=== PATIENT | female | born 1970 | race Caucasian/White ===

== ENCOUNTER → 2017-11-06 16:32 | Outpatient (REF) | payer OTHER, SELFPAY ==
[2017-11-06 20:57] LABS: Abs Immature Grans 0.01 k/cumm (0.0-0.09); Absolute Basophil Count 0.05 k/cumm (0.0-0.2); Absolute Eosinophil Count 0.58 k/cumm (0.0-0.7); Absolute Monocyte Count 0.39 k/cumm (0.11-0.7); Absolute Neutrophil Count 3.33 k/cumm (1.2-6.7); Basophils % 0.9; Eosinophils % 9.9; HCT 40.1 % (36.0-46.0); Immature Grans % 0.2; Lymphocytes % 25.6; Mean Corp. HGB Concentration 32.4 g/dL (32.0-36.0); Mean Corpuscular Hemoglobin 32.3 pg (27.0-33.0); Mean Corpuscular Volume 99.5 fL (80-95); Mean Platelet Volume 11.7 fL (8.0-11.0); Monocytes % 6.7; Neutrophils % 56.7; Platelet Count 238 x1000/uL (130-400); RBC 4.03 m/cumm (4.00-5.20); RBC Distribution Width 13.2 % (11.7-14.6); White Blood Cell Count 5.86 k/cumm (4.4-10.8)
[2017-11-06 21:18] LABS: ALT 18 U/L (12-78); AST 17 U/L (15-37); Albumin 4.3 g/dL (3.4-5.0); Alkaline Phosphatase 54 U/L (46-116); Anion Gap 9.8 mmol/L (3-11); BUN 14 mg/dL (7-18); Bilirubin, Total 0.3 mg/dL (0.2-1.0); CO2 26.2 mmol/L (21.0-32.0); CREATININE 1.09 mg/dL (0.55-1.02); Chloride 103 mmol/L (98-107); Glucose 70 mg/dL (70-100); Potassium 3.9 mmol/L (3.5-5.1); Sodium 139 mmol/L (136-145); Total Protein 7.7 g/dL (6.4-8.2)
== END ==
LOC: LBN 16:32
PROVIDERS: PCP Nurse Practitioner Family; Visit Provider Nurse Practitioner Family
DX: M05.79 Rheumatoid arthritis with rheumatoid factor of multiple sites without organ or systems involvement (principal); Z79.899 Other long term (current) drug therapy
CPT/HCPCS: 80053; 85025

== ENCOUNTER 2018-01-06 17:46 | Outpatient (RCR) | payer OTHER, SELFPAY | END 2018-01-14 23:59 | disposition home or self-care (01) | LOC: NCHCN 17:46 | PROVIDERS: PCP Nurse Practitioner Family; Visit Provider Family Medicine | DX: M54.2 Cervicalgia (principal) | CPT/HCPCS: 87077; 87086; 87186 ==

== ENCOUNTER 2018-04-24 08:52 | Outpatient (REF) | payer OTHER, SELFPAY ==
[2018-04-24 20:56] LABS: Abs Immature Grans 0.01 k/cumm (0.0-0.09); Absolute Basophil Count 0.04 k/cumm (0.0-0.2); Absolute Eosinophil Count 0.34 k/cumm (0.0-0.7); Absolute Lymphocyte Count 1.62 k/cumm (1.2-3.4); Absolute Neutrophil Count 4.39 k/cumm (1.2-6.7); Basophils % 0.6; Eosinophils % 4.9; HCT 38.6 % (36.0-46.0); HGB 12.5 g/dL (12.0-15.5); Immature Grans % 0.1; Lymphocytes % 23.5; Mean Corp. HGB Concentration 32.4 g/dL (32.0-36.0); Mean Corpuscular Volume 98.7 fL (80-95); Monocytes % 7.2; Neutrophils % 63.7; Platelet Count 244 x1000/uL (130-400); RBC 3.91 m/cumm (4.00-5.20); RBC Distribution Width 13.2 % (11.7-14.6)
[2018-04-24 21:06] LABS: ALT 18 U/L (12-78); AST 16 U/L (15-37); Albumin 4.1 g/dL (3.4-5.0); Alkaline Phosphatase 55 U/L (46-116); Anion Gap 9.1 mmol/L (3-11); BUN 17 mg/dL (7-18); Bilirubin, Total 0.3 mg/dL (0.2-1.0); CO2 27.9 mmol/L (21.0-32.0); CREATININE 1.03 mg/dL (0.55-1.02); Calcium 9.4 mg/dL (8.5-10.1); Chloride 103 mmol/L (98-107); Estimated GFR 57.44 (mL/min/1.73m2); Glucose 72 mg/dL (70-100); Potassium 4.4 mmol/L (3.5-5.1); Sodium 140 mmol/L (136-145); Total Protein 7.8 g/dL (6.4-8.2)
[2018-04-24 21:49] LABS: ESR 10 MM/HR (0-20)
== END 2018-04-24 09:12 ==
LOC: NCHCN 08:52
PROVIDERS: PCP Nurse Practitioner Family; Visit Provider Family Medicine
DX: M06.9 Rheumatoid arthritis, unspecified (principal); R42 Dizziness and giddiness
CPT/HCPCS: 80053; 85652; 85025

== ENCOUNTER 2018-06-25 21:43 | Outpatient (REF) | payer OTHER, SELFPAY ==
[2018-06-25 22:06] LABS: Cholesterol 201 mg/dL (50-200); HDL Cholesterol 58 mg/dL (40-60); LDL CHOLESTEROL 123 mg/dL (<100); Triglyceride 69 mg/dL (30-150)
[2018-06-29 11:47] LABS: Varicella IgG Antibody Positive
== END 2018-06-25 22:03 ==
LOC: NCHCN 21:43
PROVIDERS: PCP Nurse Practitioner Family; Visit Provider Registered Nurse
DX: Z00.00 Encounter for general adult medical examination without abnormal findings (principal); Z02.0 Encounter for examination for admission to educational institution; Z13.220 Encounter for screening for lipoid disorders; Z11.59 Encounter for screening for other viral diseases
CPT/HCPCS: 80061; 83721; 86787

== ENCOUNTER 2018-09-23 15:15 | Outpatient (REF) | payer OTHER, SELFPAY ==
[2018-09-23 21:53] LABS: Abs Immature Grans 0.02 k/cumm (0.0-0.09); Absolute Basophil Count 0.03 k/cumm (0.0-0.2); Absolute Eosinophil Count 0.34 k/cumm (0.0-0.7); Absolute Lymphocyte Count 1.69 k/cumm (1.2-3.4); Absolute Monocyte Count 0.61 k/cumm (0.11-0.7); Absolute Neutrophil Count 6.22 k/cumm (1.2-6.7); Basophils % 0.3; Eosinophils % 3.8; HCT 41.1 % (36.0-46.0); HGB 13.5 g/dL (12.0-15.5); Immature Grans % 0.2; Mean Corp. HGB Concentration 32.8 g/dL (32.0-36.0); Mean Corpuscular Hemoglobin 32.3 pg (27.0-33.0); Mean Corpuscular Volume 98.3 fL (80-95); Mean Platelet Volume 11.8 fL (8.0-11.0); Monocytes % 6.8; Neutrophils % 69.9; Platelet Count 254 x1000/uL (130-400); RBC 4.18 m/cumm (4.00-5.20); RBC Distribution Width 13.8 % (11.7-14.6); White Blood Cell Count 8.91 k/cumm (4.4-10.8)
[2018-09-23 22:08] LABS: ALT 26 U/L (12-78); Albumin 4.1 g/dL (3.4-5.0); Alkaline Phosphatase 59 U/L (46-116); Anion Gap 10.4 mmol/L (3-11); BUN 15 mg/dL (7-18); Bilirubin, Total 0.2 mg/dL (0.2-1.0); CO2 26.6 mmol/L (21.0-32.0); CREATININE 0.89 mg/dL (0.55-1.02); Calcium 9.4 mg/dL (8.5-10.1); Chloride 103 mmol/L (98-107); Glucose 83 mg/dL (70-100); Potassium 3.9 mmol/L (3.5-5.1); Sodium 140 mmol/L (136-145); Total Protein 7.2 g/dL (6.4-8.2); Uric Acid 4.8 mg/dL (2.6-6.0)
[2018-09-23 22:17] LABS: AST 18 U/L (15-37)
[2018-09-23 22:41] LABS: ESR 9 MM/HR (0-20)
== END 2018-09-23 15:35 ==
LOC: NCHCN 15:15
PROVIDERS: PCP Nurse Practitioner Family; Visit Provider Registered Nurse
DX: M06.9 Rheumatoid arthritis, unspecified (principal); Z79.899 Other long term (current) drug therapy
CPT/HCPCS: 80053; 85652; 84550; 85025; 86140

== ENCOUNTER 2019-11-11 17:55 | Outpatient (REF) | payer MEDICAID, SELFPAY ==
[2019-11-14 02:33] LABS: COVID-19 RT-PCR Result NEGATIVE (Negative)
== END 2019-11-11 18:15 ==
LOC: NCHCN 17:55
PROVIDERS: PCP Nurse Practitioner Family; Visit Provider Family Medicine
DX: Z20.828 Contact with and (suspected) exposure to other viral communicable diseases (principal)
CPT/HCPCS: U0003

== ENCOUNTER 2020-06-26 15:13 | Outpatient (REF) | payer OTHER, SELFPAY ==
--- NOTE | 2020-06-26 15:00 | PAPFT_PTH ---
PATIENT: Nilda Ambriz LOC: [facility] U#:[id number] AGE/SX: 49/F ROOM: RE06/26/[address]: Keiko Ansari DO : 1970 BED: DIS: 06/26/2020 SPEC #: [id number] RECD: 06/26/20 15:51 STATUS: DENIA REQ #: [id number] AMALIA: 06/26/20 15:[address]: Keiko Ansari DEPT: [facility] Cytology RECD BY: Gissel Tabares ENTERED: 06/26/20 15:51 SP TYPE: PAPFT OTHR DR: Portia Junior Tissues: 1 - CX/ENDOCX FOR PAP SMEARS Procedures: PAP THIN PREP/UVM Screening HPV DNA PROBE Comments: [id number]
--- NOTE | 2020-06-26 15:00 | ENDOMET_PTH ---
PATIENT: Nilda Ambriz LOC: [facility] U#:[id number] AGE/SX: 49/F ROOM: RE06/26/[address]: Keiko Ansari DO : 1970 BED: DIS: 06/26/2020 SPEC #: [id number] RECD: 06/26/20 15:34 STATUS: DENIA REQ #: [id number] AMALIA: 06/26/20 15:[address]: Keiko Ansari DEPT: Surgical Specimen RECD BY: Gissel Tabares ENTERED: 06/26/20 15:35 SP TYPE: Endomet OTHR DR: Portia Junior Tissues: 1 - ENDOMETRIUM BX/MARTINE Procedures: GROSS AND MICRO LEVEL 4 Comments: [id number]
== END 2020-06-26 15:14 | disposition home or self-care (01) ==
LOC: LBN 15:13
PROVIDERS: PCP Nurse Practitioner Family; Visit Provider Obstetrics & Gynecology
DX: Z12.4 Encounter for screening for malignant neoplasm of cervix (principal); Z11.51 Encounter for screening for human papillomavirus (HPV); N93.9 Abnormal uterine and vaginal bleeding, unspecified; N85.8 Other specified noninflammatory disorders of uterus
CPT/HCPCS: 88142; 88305; 87624

== ENCOUNTER 2020-10-31 02:58 | Outpatient (CLI) | payer OTHER, MEDICAID, SELFPAY ==
[2020-10-31 08:47] LABS: Abs Immature Grans 0.02 10^3/uL (0.0-0.06); Absolute Basophil Count 0.06 10^3/uL (0.0-0.2); Absolute Eosinophil Count 0.24 10^3/uL (0.0-0.7); Absolute Lymphocyte Count 1.33 10^3/uL (1.2-3.4); Absolute Monocyte Count 0.39 10^3/uL (0.1-0.8); Absolute Neutrophil Count 3.92 10^3/uL (1.2-6.7); HCT 41.7 % (36.0-46.0); HGB 13.7 g/dL (11.2-15.7); Immature Grans % 0.3; Lymphocytes % 22.3; MCH 31.6 pg (27.0-33.0); MCHC 32.9 % (32.0-36.0); MCV 96.1 fL (80-95); MPV 11.2 fL (8.0-11.0); Monocytes % 6.5; Neutrophils % 65.9; Nucleated RBC 0 %; Platelet Count 246 10^3/uL (130-400); RBC 4.34 10^6/uL (3.93-5.22); RDW 11.9 % (11.7-14.6); RDW-SD 42.4 fL; WBC 5.96 10^3/uL (4.4-10.8)
[2020-10-31 09:47] LABS: TSH (W/Ref FT4) 1.56 uIU/mL (0.36-3.74)
[2020-10-31 17:33] LABS: Prolactin 10.7 ng/mL (See Table)
== END 2020-10-31 02:59 | disposition home or self-care (01) ==
LOC: LBO 02:59
PROVIDERS: PCP Nurse Practitioner Family; Visit Provider Obstetrics & Gynecology
DX: N92.0 Excessive and frequent menstruation with regular cycle (principal); Z01.818 Encounter for other preprocedural examination; Z01.812 Encounter for preprocedural laboratory examination
CPT/HCPCS: 36415; 85027; 86850; 86900; 86901; 84146; 84443; 85025

== ENCOUNTER 2020-10-31 03:29 | Outpatient (CLI) | payer OTHER, MEDICAID, SELFPAY ==
[2020-10-31 13:16] LABS: Source Nasal/Nares
[2020-10-31 16:28] LABS: COVID-19 PCR Negative (Negative)
== END 2020-10-31 03:30 | disposition home or self-care (01) ==
LOC: LBO 03:29
PROVIDERS: PCP Nurse Practitioner Family; Visit Provider Obstetrics & Gynecology
DX: Z20.822 Contact with and (suspected) exposure to COVID-19 (principal); Z01.818 Encounter for other preprocedural examination
CPT/HCPCS: 87635

== ENCOUNTER 2020-11-02 11:35 | Observation (INO) | payer OTHER, MEDICAID, SELFPAY ==
[2020-11-02] VITALS (14 sets, daily range): BP systolic 76–116; BP diastolic 41–69; PULSE 58–85; RESP 11–22; TEMP 36.1–37.2; O2SAT 97–100; BMI 30.9
[2020-11-02] MEDS: Lactated Ringers 1,000 ML 125 ML IV ×2 (07:01→11:30)
--- NOTE | 2020-11-02 07:07 | W.ANESPRE ---
General Info Date of Service Date Performed: 11/02/20 Height: 5 ft 4 in Weight: 81.647 kg Body Mass Index (BMI): 30.9 Surgical Procedure: Operation Date: 11/02/20 08:25 Proposed Procedures Side Surgeon p Hysterectomy Vaginal Laparoscopic Assist, ZULLY SALPINGECTOMY POSSIBLE ANU, CYSTO Keiko DO Elan Meds Allergies and Home Medications Allergies Allergy/AdvReac Type Severity Reaction Status Date / Time nitrofurantoin AdvReac Severe Nausea, Unverified 11/02/20 06:32 macrocrystalline dizziness [From Macrobid] Home Medication Medication Instructions Recorded folic acid 1 mg PO DAILY tab-cap 07/31/12 methotrexate sodium 2.5 mg PO weekly #6 07/31/12 norethindrone acetate 5 mg tablet 5 mg PO DAILY #30 tab 10/12/20 albuterol sulfate [ProAir HFA] 2 puff INHALATION Q4H 11/01/20 fluticasone propionate [Flovent 1 inh INHALATION HS 11/01/20 Diskus] leucovorin calcium 10 mg PO DIRECTED 11/01/20 Current Visit Medications: Current Medications Generic Name Dose Route Start Last Admin Trade Name Freq PRN Reason Stop Dose Admin Ringer's Solution 1,000 mls @ 125 mls/hr 11/02/20 06:00 11/02/20 07:01 IV 12/01/20 23:59 125 mls/hr INFUSION FILIBERTO Administration IV Miscellaneous Supplies 1 each 11/02/20 06:00 Iv Access IV 12/01/20 23:59 DIRECTED FILIBERTO Sodium Chloride 0 ml 11/02/20 06:00 Normal Saline Flush 10 Ml Syr IV 12/01/20 23:59 PRN PRN Sodium Chloride 0 ml 11/02/20 06:00 Normal Saline 10 Ml Vial IJ 12/01/20 23:59 DIRECTED PRN Sterile Water 0 ml 11/02/20 06:00 Water,Injection,Sterile 10 Ml Vial IJ 12/01/20 23:59 DIRECTED PRN PFSH Active Problems Active Problems: Problem Status Onset Code Endometrial thickening on ultrasound R93.89 Uterine fibroid D25.9 Heavy menses N92.0 Medical History Medical History (Updated 11/02/20 @ 06:35 by Raquel Aviles) Endometrial thickening on ultrasound Heavy menses Rheumatoid aortitis Uterine fibroid Surgical History Surgical History Appendectomy Ligation of fallopian tube Tobacco Smoking/Tobacco Use Status: Former Tobacco Use Alcohol Alcohol Intake: never Substance Use Substance use: Never Substance use type: does not use Vital Signs and Lab Results Lab Results Blood Type / Crossmatch: Patient ABO/Rh A Negative 10/31/20 08:25 10/31/20 Antibody Screen NEGATIVE 10/31/20 08:25 10/31/20 Complete Blood Count: White Blood Count 5.96 10^3/uL (4.4-10.8) 10/31/20 08:25 10/31/20 Red Blood Count 4.34 10^6/uL (3.93-5.22) 10/31/20 08:25 10/31/20 Hemoglobin 13.7 g/dL (11.2-15.7) 10/31/20 08:25 10/31/20 Hematocrit 41.7 % (36.0-46.0) 10/31/20 08:25 10/31/20 Platelet Count 246 10^3/uL (130-400) 10/31/20 08:25 10/31/20 Complete Metabolic Panel: No Data to Display Liver Function Panel: No Data to Display Coagulation Panel: No Data to Display Cardiac Panel: No Data to Display Arterial Blood Gas: No Data to Display Venous Blood Gas: No Data to Display Pancreas Panel: No Data to Display Thyroid Panel: Thyroid Stimulating Hormone (TSH) 1.56 uIU/mL (0.36-3.74) 10/31/20 08:25 10/31/20 Infectious Disease: Coronavirus (COVID-19)(PCR) Negative (Negative) 10/31/20 08:34 10/31/20 Coronavirus 2019 Source Nasal/Nares 10/31/20 08:34 10/31/20 Blood Cultures: No Data to Display Toxicology Panel: No Data to Display Panel: No Data to Display Anesthesia Assessment and Plan Anesthesia History Personal History: No History of Anesthesia Complications Family History: No Family History of Anesthesia Complications Exercise Tolerance Exercise Tolerance: Metabolic Equivalents>4 Pertinent Negatives Pertinent Negatives: No Symptoms of GERD, No Major Cardiovascular Symptoms or Complaints and No Major Pulmonary Symptoms or Complaints Cardiac & Pulmonary Exam Cardiac Exam: Normal S1/S2 Heart Sounds Pulmonary Exam: Clear Bilateral Breath Sounds Airway Exam Known Difficult Airway: No Mallampati Class: 2 Mouth Opening: Normal (> 3cm) Thyromental Distance: Greater than 3 cm Neck Range of Motion: Full ROM Neck Circumference: Normal Teeth Condition: Normal Dentition ASA Classification ASA Score: ASA 2 Emergency Case?: No NPO Status NPO Status: NPO Clears >2 hours, Solids >8 hours Status Status: Not Relevant due to Medical History Anesthesia Plan Resuscitation Status: Full Code Anesthesia Technique: General Anesthesia Airway Planned: Endotracheal Tube Pain Management: Intrathecal Analgesia Monitors Used: Standard Monitors
[2020-11-02] MEDS: Acetaminophen 500 MG TAB 1000 MG PO (07:41)
[2020-11-02] MEDS: Ondansetron 4 MG/2 ML VIAL IVP (07:41)
[2020-11-02] MEDS: ceFAZolin 2 GM/50 ML BAG 50 GM (08:09)
--- NOTE | 2020-11-02 09:17 | UTER_PTH ---
PATIENT: Nilda Ambriz LOC: [facility] U#:[id number] AGE/SX: 50/F ROOM: OBS.306 RE11/02/[address]: Keiko Ansari DO : 1970 BED: A DIS: 11/03/2020 SPEC #: [id number] RECD: 11/02/20 12:45 STATUS: SOUT REQ #: [id number] AMALIA: 11/02/20 09:[address]: Keiko Ansari DEPT: Surgical Specimen RECD BY: Gissel Tabares ENTERED: 11/02/20 12:47 SP TYPE: UTER OTHR DR: Portia Junior Tissues: 1 - UTERUS W OR W/O OVARIES(NOT TUMOR/PROLAPSE) Procedures: GROSS AND MICRO LEVEL 5 Comments: [id number]
[2020-11-02] MEDS: Bupivacaine 0.5% Pres-Free 30 ML VIAL (10:30)
--- NOTE | 2020-11-02 10:35 | W.PM.OP ---
Date of service: 11/02/20 Time of Service: 10:35 Operative Note Operative Note DATE OF PROCEDURE: 11/02/20 PRE-OP DIAGNOSIS: Symptomatic uterine fibroids POST-OP DIAGNOSIS: same PROCEDURE: Laparoscopically assisted vaginal hysterectomy, bilateral salpingectomy, cystoscopy SURGEON: Keiko Ansari SIGN ERECTOR: Rhina Ernandez ANESTHESIA TYPE: General LMA/ETT and Spinal Refer to Anesthesia Record ESTIMATED BLOOD LOSS: 50 PATHOLOGY: other (Bilateral fallopian tubes, uterus, cervix) COMPLICATIONS: None Patient was transported to: PACU Patient's condition: stable Indications: Ongoing heavy menstrual bleeding with symptomatic uterine fibroids and pelvic pain Findings: Normal-appearing ovaries bilaterally. Remnants of fallopian tubes. Bulky enlarged uterus, approximately 8 to 10 weeks size. Normal postoperative cystoscopy with no evidence of bladder injury. Normal functioning ureters. Procedure Description: Patient is a 50-year-old female with ongoing heavy menstrual bleeding and symptomatic uterine fibroids. Her menstrual cycles have been debilitating. She had been placed empirically on Aygestin to control bleeding. This provided some relief from her blood loss, however continued to have significant pelvic pain. Preop evaluation including ultrasound, endometrial biopsy and Pap smears were all normal. Risk benefits and alternatives of medical therapy versus surgical intervention were explained to the patient in full informed consent was obtained. She understand the risk of injury to the bowel, bladder, blood vessels, potential risk of anesthesia, thromboembolism, need for open laparotomy. Full informed consent has been obtained. She was taken to the operating suite with an IV running where she was placed in the dorsal supine position after intrathecal was placed for postoperative pain relief. General anesthesia was administered via endotracheal intubation. She was then placed in the modified dorsolithotomy position in [facility] and prepped and draped in the usual sterile fashion. Timeout was performed. Exam under anesthesia revealed a bulky uterus that was approximately 8 to 10 weeks size and midline and mobile. At this point Roman catheter was inserted for continuous bladder drainage. Weighted speculum was placed into the posterior vaginal vault and single-tooth tenaculum used to grasp the anterior lip of the cervix. Cervical os was dilated the point that a Hulka uterine manipulator could be placed within. At this point speculum was removed and attention was turned to the abdomen. After infiltration with quarter percent Marcaine a small infraumbilical skin incision was made. The anterior abdominal wall was elevated after stomach contents had been drained and with a varies needle direct insertion was performed. Pneumoperitoneum created to a maximum pressure of 15 mmHg with CO2 gas. After creation of the pneumoperitoneum a bladeless Optiview 10/12 sleeve and trocar were placed under direct visualization into the abdomen. Abdomen inspected and found to be atraumatic. A second and third right and left lower quadrant trocar site were placed after infiltration of quarter percent Marcaine with a 5 mm port. At this point the uterus was elevated. There is no evidence of intra-abdominal or pelvic adhesions noted. There were remnants of the fallopian tubes with fimbriated and attached in both ovaries. Ovaries otherwise were normal in appearance. Uterus was somewhat bulky approximately 8 to 10 weeks size. Attention was first turned to the right fallopian tube remnant which was elevated and cautery transected and removed through the 10 mm port. Similar procedure carried out on the left fallopian tube remnant. At this point the left round ligament was cauterized transected and ligated as well as the left utero-ovarian ligament. This allowed opening of the left broad ligament and creation of the bladder flap anteriorly with meticulous sharp dissection. Uterine artery and vein on the left were cauterized at this point. Attention was then turned to the right round ligament which was cautery transected and ligated as was the right utero-ovarian pedicle allowing access to the broad ligament for completion of the bladder flap. The right uterine artery and vein were also cautery ligated. At this point, after achieving good hemostasis, attention was turned to the vaginal vault. CO2 gas was discontinued for the vaginal portion of the procedure. The Hulka uterine manipulator had been removed. Weighted speculum placed in the posterior vaginal vault and the anterior posterior lip of the cervix grasped with a Morena clamp. In a circumferential fashion with the Bovie cautery an incision was made at the cervical vaginal interface. The posterior peritoneum and cul-de-sac was entered sharply and a weighted speculum placed within. The left uterosacral cardinal complex was clamped transected and ligated followed by the right uterosacral cardinal comp. At this point the anterior cul-de-sac was entered with meticulous sharp dissection. The remainder of the uterine pedicles were clamped and then ligated allowing delivery of the uterus through the vaginal opening. Vaginal cuff inspected and found to be hemostatic. With incorporation of the peritoneum anteriorly and posteriorly into the vaginal cuff the vaginal cuff was closed using 0 Vicryl suture in a running locked fashion and found to be hemostatic. This completed the vaginal portion of the procedure and attention was returned to the abdomen. At this point CO2 gas was used to recreate pneumoperitoneum. Abdomen was irrigated copious amounts of normal saline and all pedicles found to be intact and hemostatic. The vaginal cuff was hemostatic with good closure. The gas was diminished to a maximum pressure of 5 mmHg and again all pedicles inspected and found to be hemostatic. This completed the abdominal portion of the procedure. CO2 gas was discontinued, pneumoperitoneum released, all instruments were removed from the abdomen and the fascial incision at the umbilicus closed using 0 Vicryl suture remainder the stab wounds were closed with 4 oh [place] suture and Steri-Strips and sterile dressings were placed. Cystoscopy was also performed point with instillation of normal saline after methylene blue given intravascularly. The bladder dome was inspected and found to be completely atraumatic. Both ureteric orifice ease were present identified and with jets of blue urine identified. This completed the procedure all instruments were removed and the patient was returned to the dorsal supine position she woke from anesthesia with ease and was taken to recovery room in stable condition Complications: None apparent EBL: 50 mL Pathology: Remnants of bilateral fallopian tubes, uterus, cervix for examination.
--- NOTE | 2020-11-02 11:14 | W.ANESPOSTOP ---
Postoperative Evaluation Date, Time and Location Date Performed: 11/02/20 Time Performed: 11:14 Patient Location: Day Surgery Unit Vital Signs Most Recent Imported Vital Signs: Most Recent Vital Signs Temp Pulse Resp BP Pulse Ox 36.1 C L 76 16 93/52 L 73 L 11/02/20 11:05 11/02/20 11:05 11/02/20 11:05 11/02/20 11:05 11/02/20 11:05 Pain Score Most Recent Pain Score: Most Recent Pain Score Pain Level 0 11/02/20 11:05 Assessment Mental Status: Arousable with meaningful communication Airway and Respiratory Function: Patent airway with normal (patient baseline) respiratory exam Cardiovascular Function: Hemodynamically Stable Hydration Status: Adequately Hydrated Nausea & Vomiting: No Nausea or Vomiting Pain: Pt. Denies Any Pain Peripheral Nerve Block: Patient did not receive a nerve block
--- NOTE | 2020-11-02 15:43 | W.PM.PROGNOT ---
Date of Service Date of service: 11/02/20 Time of Service: 15:43 Assessment and Plan Assessment and plan (1) Status post laparoscopic assisted vaginal hysterectomy: Status: Acute Assessment and plan: Postoperative day #0. Doing well. Continue routine postoperative care. CBC in the morning. Ambulate tonight. Roman out tonight. Anticipate discharge home in the morning. Subjective Subjective Patient reports: no new complaints and feels better Interval history since last seen: Patient seen postoperative day #0. Stable vital signs. Good pain control. No nausea or vomiting. Surgical findings discussed at length today with patient and her . Continue routine postoperative care. Exam Const General: cooperative and healthy appearing Objective Last Vital Signs Temp 99.0 F 11/02/20 13:24 Pulse 61 11/02/20 13:45 Resp 12 11/02/20 13:45 BP 104/55 L 11/02/20 13:45 Pulse Ox 99 11/02/20 13:45
[2020-11-02] MEDS: Ketorolac 15 MG/ML VIAL IVP ×2 (17:07→23:30)
[2020-11-02] MEDS: Normal Saline Flush 10 ML SYR IV ×2 (17:08→23:30)
[2020-11-02] MEDS: Docusate Sodium 100 MG CAP PO (21:46)
[2020-11-03 00:05] VITALS: BP 108/61; PULSE 68; RESP 16; TEMP 36.8; O2SAT 99
[2020-11-03] MEDS: Acetaminophen 500 MG TAB PO ×2 (04:59→08:39)
[2020-11-03] MEDS: Normal Saline Flush 10 ML SYR IV (05:05)
[2020-11-03] MEDS: Ketorolac 15 MG/ML VIAL IVP (05:05)
[2020-11-03 05:49] VITALS: BP 99/51; PULSE 83; RESP 16; TEMP 36.8; O2SAT 99
[2020-11-03 07:15] VITALS: BP 96/57; PULSE 72; RESP 14; TEMP 37.2; O2SAT 98
[2020-11-03 07:24] LABS: Abs Immature Grans 0.02 10^3/uL (0.0-0.06); Absolute Basophil Count 0.02 10^3/uL (0.0-0.2); Absolute Eosinophil Count 0.07 10^3/uL (0.0-0.7); Absolute Lymphocyte Count 2.25 10^3/uL (1.2-3.4); Absolute Monocyte Count 0.69 10^3/uL (0.1-0.8); Absolute Neutrophil Count 6.42 10^3/uL (1.2-6.7); Basophils % 0.2; Eosinophils % 0.7; HCT 32.8 % (36.0-46.0); HGB 10.8 g/dL (11.2-15.7); Immature Grans % 0.2; Lymphocytes % 23.8; MCH 31.5 pg (27.0-33.0); MCHC 32.9 % (32.0-36.0); MCV 95.6 fL (80-95); MPV 11.2 fL (8.0-11.0); Monocytes % 7.3; Neutrophils % 67.8; Nucleated RBC 0 %; Platelet Count 218 10^3/uL (130-400); RBC 3.43 10^6/uL (3.93-5.22); RDW 11.9 % (11.7-14.6); RDW-SD 41.8 fL; WBC 9.47 10^3/uL (4.4-10.8)
[2020-11-03] MEDS: Docusate Sodium 100 MG CAP PO (07:58)
--- NOTE | 2020-11-03 08:08 | W.PM.PROGNOT ---
Date of Service Date of service: 11/03/20 Time of Service: 08:08 Assessment and Plan Assessment and plan (1) Status post laparoscopic assisted vaginal hysterectomy: Status: Acute Assessment and plan: Postoperative day #1 status post laparoscopically assisted vaginal hysterectomy with bilateral salpingectomy. Doing well. Discharge home today. Precautions given. Restrictions discussed with no heavy lifting and pelvic rest for the next 6 weeks. Prescriptions will go to the pharmacy. She will be seen in the office in 2 weeks for post checkup and 6 weeks for postoperative exam Subjective Subjective Patient reports: no new complaints, feels better, tolerating liquids well and tolerating a regular diet; denies nausea, vomiting and fever Interval history since last seen: Patient seen and examined this morning. Doing well. Ambulating, tolerating a regular diet and oral pain medication. Voiding without difficulty. Roman catheter is out. Hemoglobin stable at 10.8. Anticipate discharge home today. Orders are written. Exam Const General: cooperative, healthy appearing and no acute distress Eyes General: appearance normal, both eyes and all related structures Resp Effort & Inspection: normal respiratory effort and no cough Cardio Jugular venous pressure: no JVD Palpation: normal PMI Rate: regular rate Rhythm: regular rhythm GI Inspection: normal to inspection and incision (Clean, dry, intact) Palpation: soft, not firm, no guarding and no masses Auscultation: normal bowel sounds Skin General skin exam: no rashes or lesions noted Extrem General: no clubbing, cyanosis or edema and no calf tenderness bilaterally Objective Last Vital Signs Temp 99.0 F 11/03/20 07:15 Pulse 72 11/03/20 07:15 Resp 14 11/03/20 07:15 BP 96/57 L 11/03/20 07:15 Pulse Ox 98 11/03/20 07:15 Laboratory Results - last 24 hr 11/03/20 07:02 WBC 9.47 RBC 3.43 L Hgb 10.8 L D Hct 32.8 L D MCV 95.6 H MCH 31.5 MCHC 32.9 RDW 11.9 Plt Count 218 MPV 11.2 H Immature Gran % 0.2 Neutrophils % 67.8 Lymphocytes % 23.8 Monocytes % 7.3 Eosinophils % 0.7 Basophils % 0.2 Nucleated RBC % 0 Absolute Neutrophils 6.42 Absolute Lymphocytes 2.25 Absolute Monocytes 0.69 Absolute Eosinophils 0.07 Absolute Basophils 0.02
--- NOTE | 2020-11-03 08:18 | W.PM.DS.N ---
Date of service: 11/03/20 Time of Service: 08:18 DS: Diagnosis Discharge Diagnosis (1) Status post laparoscopic assisted vaginal hysterectomy: Status: Acute Discharge Plan Disposition Patient Disposition: HOME Condition: Good Discharge Details Reason For Visit: Laparoscopically assisted vaginal hysterectomy Admit Date/Time: 11/02/20 12:00 Admit Provider: Keiko Ansari Attending Provider: Keiko Ansari Primary Care Provider: Portia Junior Hospital Course Hospital Course: Patient underwent an uncomplicated laparoscopically assisted vaginal hysterectomy with bilateral salpingectomy. She had a routine postoperative course. She is transitioned from parenteral pain medication and n.p.o. status to regular diet and oral pain medication. She is ambulating, tolerating her regular diet and oral pain medication with stable vital signs upon discharge home. She will be seen in the office in 2 weeks time. Discharge hemoglobin stable at 10.8. Pathology is pending. Home Meds and New Rx's Prescriptions: New ibuprofen 800 mg tablet 800 mg PO Q8H Qty: 30 RF: 3 docusate sodium [Colace] 100 mg capsule 100 mg PO BID Qty: 30 RF: 1 oxycodone-acetaminophen [Percocet] 5-325 mg tablet 1 tab PO Q8H PRNQty: 14 RF: 0 Continued methotrexate sodium 2.5 MG tablet 2.5 mg PO weekly Qty: 6 RF: 0 folic acid 1 MG tablet 1 mg PO DAILY RF: 0 norethindrone acetate [Aygestin] 5 mg tablet 5 mg PO DAILY Qty: 30 RF: 3 Flovent Diskus 100 mcg/actuation Blister With Device 1 inh INHALATION HS RF: 0 leucovorin calcium 5 mg Tablet 10 mg PO DIRECTED RF: 0 albuterol sulfate [ProAir HFA] 90 mcg/actuation Hfa Aerosol Inhaler 2 puff INHALATION Q4H RF: 0 Discharge Instructions Additional Instructions: Pelvic rest for the next 6 weeks. No heavy lifting for 6 weeks. Follow-up with Dr. Ansari in 2 weeks Stand Alone Forms: DSU Post Gynecology Surgery Activity:: Activity as Tolerated Equipment/Supplies:: No Equipment Needed Diet:: As Tolerated Discharge Orders Discharge Orders: Discharge Order (Routine); Ordered 11/03/20 Ordered By: Keiko Ansari DS: Summary Time Spent with Patient providing and/or coordinating discharge services: Less than 30 minutes Status at Discharge Functional status at discharge: independent ambulation Overall status at discharge: patient is progressing back to baseline Mental Status: mental status grossly normal Speech and Movement: speech and movement normal Mood: congruent mood Affect: normal affect Exam Narrative Exam Narrative: Please see physical exam from progress note dated 11/03/2020 Psych Mental Status: mental status grossly normal Speech and Movement: speech and movement normal Mood: congruent mood Affect: normal affect DS: Data Vitals/I&O Vitals and I&O: Vital Signs Temperature 99.0 F 11/03/20 07:15 Temperature Source Oral 11/03/20 07:15 Pulse 72 11/03/20 07:15 Pulse Rhythm Regular 11/03/20 07:15 Respiratory Rate 14 11/03/20 07:15 Respiratory Effort 11/03/20 07:15 Respiratory Depth Normal 11/03/20 07:15 Respiratory Pattern Normal 11/03/20 07:15 Blood Pressure 96/57 L 11/03/20 07:15 Pulse Oximetry 98 11/03/20 07:15 Respiratory End-tidal CO2 38 11/02/20 11:35 Oxygen Delivery Method Room Air 11/03/20 07:15 Oxygen Flow Rate 0 11/03/20 07:15 Pain Level 3 11/03/20 05:49 Intake & Output 11/02/20 11/02/20 11/03/20 11:59 23:59 11:59 Intake Total 1000 / 3750 2750 / 3750 Output Total 250 / 1350 1100 / 1350 1200 / 1200 Balance 750 / 2400 1650 / 2400 -1200 / -1200 Weight 180 lb 0.013 oz Intake: IV 1000 / 2000 1000 / 2000 Oral 1750 / 1750 Output: Urine 200 / 1300 1100 / 1300 1200 / 1200 Estimated Blood Loss 50 / 50 Other: Urine Color Indigo Pale Yellow Yellow Urine Appearance Clear Clear Clear Urine Odor None None Comment INDIGO CARMINE BLUE ADMINISTERED; CYSTO Emesis Description None Voiding Methods Toilet Toilet Data Completed and Pending Labs on day of discharge: Labs from last 24 hours 11/03/20 07:02 WBC 9.47 RBC 3.43 L Hgb 10.8 L D Hct 32.8 L D MCV 95.6 H MCH 31.5 MCHC 32.9 RDW 11.9 Plt Count 218 MPV 11.2 H Immature Gran % 0.2 Neutrophils % 67.8 Lymphocytes % 23.8 Monocytes % 7.3 Eosinophils % 0.7 Basophils % 0.2 Nucleated RBC % 0 Absolute Neutrophils 6.42 Absolute Lymphocytes 2.25 Absolute Monocytes 0.69 Absolute Eosinophils 0.07 Absolute Basophils 0.02 PFSH Medical History Endometrial thickening on ultrasound Heavy menses Rheumatoid aortitis Uterine fibroid Surgical History Appendectomy Ligation of fallopian tube Status post laparoscopic assisted vaginal hysterectomy Family History Mother No problems noted. Father Liver cancer Diabetes Heart disease Brother Lung cancer Social History Smoking/Tobacco Use Status: Former Tobacco Use Quit Date: 03/17/19 Smoking risk assessment performed?: Yes Alcohol Intake: never Drug use: Never Substance use type: does not use Do you feel safe at home: Yes Do you feel safe in your relationship?: Yes
[2020-11-03] MEDS: Ibuprofen 600 MG TAB PO (08:38)
== END 2020-11-03 09:15 | disposition home or self-care (01) ==
LOC: OBS 16:09
PROVIDERS: Admitting Provider Obstetrics & Gynecology; PCP Nurse Practitioner Family; Visit Provider Obstetrics & Gynecology
PROC: 0UT9FZZ Resection of Uterus, Via Natural or Artificial Opening With Percutaneous Endoscopic Assistance (ICD-10-PCS; CPT 58552; principal; 2020-11-02 08:15)
DX: D25.1 Intramural leiomyoma of uterus (principal); N80.0 Endometriosis of uterus; D25.0 Submucous leiomyoma of uterus; N72 Inflammatory disease of cervix uteri; N83.8 Other noninflammatory disorders of ovary, fallopian tube and broad ligament; N92.0 Excessive and frequent menstruation with regular cycle
CPT/HCPCS: 58552; 52000; 36415; 85025; 88307; J0690; J1100; J1885; J2001; J2250; J2405; J2704; J3010

== ENCOUNTER 2021-06-06 10:29 | Outpatient (REF) | payer MEDICAID, SELFPAY ==
--- NOTE | 2021-06-06 08:40 | SKI_PTH ---
PATIENT: Nilda Ambriz LOC: [facility]#:[id number] AGE/SX: 50/F ROOM: RE06/06/[address]: Julieta Felix : 1970 BED: DIS: 06/06/2021 SPEC #: [id number] RECD: 06/06/21 17:23 STATUS: DENIA REAmaya #: [id number] AMALIA: 06/06/21 08:[address]: Julieta Felix DEPT: Surgical Specimen RECD BY: Gissel Tabares ENTERED: 06/06/21 17:25 SP TYPE: RADHA ROBERTS DR: Portia Junior Tissues: 1 - SKIN BIOPSY(SHAVE/PUNCH) Procedures: SKIN LEVEL 4 Comments: [id number]
== END 2021-06-06 10:30 | disposition home or self-care (01) ==
LOC: NCHCN 10:29
PROVIDERS: PCP Nurse Practitioner Family; Visit Provider Family Medicine
DX: L82.0 Inflamed seborrheic keratosis (principal)
CPT/HCPCS: 88305

== ENCOUNTER 2021-11-09 19:03 | Outpatient (REF) | payer OTHER, MEDICAID, SELFPAY ==
[2021-11-09 21:25] LABS: ESR 8 mm/hr (0-30)
[2021-11-09 21:27] LABS: ALT 19 U/L (14-59); AST 15 U/L (15-37); Albumin 3.8 g/dL (3.4-5.0); Alkaline Phosphatase 64 U/L (46-116); Anion Gap 8.1 mmol/L (3-11); BUN 15 mg/dL (7-18); Bilirubin, Total 0.2 mg/dL (0.2-1.0); CO2 27.9 mmol/L (21.0-32.0); Calcium 9.1 mg/dL (8.5-10.1); Chloride 105 mmol/L (98-107); Estimated GFR 58.45 (mL/min/1.73m2); Glucose 106 mg/dL (74-106); Potassium 3.8 mmol/L (3.5-5.1); Sodium 141 mmol/L (136-145); TSH (W/Ref FT4) 0.75 uIU/mL (0.36-3.74); Total Protein 7.2 g/dL (6.4-8.2)
[2021-11-12 05:53] LABS: Vitamin D 25 Total 42.1 ng/mL (30-100)
== END 2021-11-09 19:04 | disposition home or self-care (01) ==
LOC: NCHCN 19:03
PROVIDERS: PCP Nurse Practitioner Family; Visit Provider Family Medicine
DX: M05.79 Rheumatoid arthritis with rheumatoid factor of multiple sites without organ or systems involvement (principal); Z79.899 Other long term (current) drug therapy
CPT/HCPCS: 80053; 82306; 85652; 84443

== ENCOUNTER 2024-08-16 03:00 | Outpatient (CLI) | payer BC, SELFPAY ==
--- NOTE | 2024-08-16 | DI.MAMMO_ITS ---
Exam(s) MAMMO SCREENING EXAM: MAMMO SCREENING CLINICAL HISTORY: Screening, Z12.39. TECHNIQUE: Bilateral full field digital CC and MLO mammographic images were obtained with 3D tomosyn thesis and utilizing computer aided detection (CAD). COMPARISON: Prior mammograms were reviewed. FINDINGS: There has been no significant change in the appearance and distribution of the fibroglandular tissue. There are no new spiculated masses nor malignant appearing microcalcification groups. There is no significant architectural distortion nor skin thickening-retraction. IMPRESSION: No radiographic evidence of malignancy. BI-RADS Category 1 - Negative Breast Density - Category B - There are scattered areas of fibroglandular density. Breast density Category C or D implies that the patient has dense breast tissue. Dense breast tissue can make it harder to find cancer on a mammogram. Dense breast tissue is also associated with an incr eased risk of breast cancer. This information about the result of the mammogram report was provided to the patient to raise their awareness. Use this report when you speak with the patient about their risks for breast cancer, which includes their family history. At that time, you may recommend additional screening tests (Ultrasoun d or MRI) as these tests may add significant information. A negative radiographic report should not delay biopsy if a dominant or clinically suspicious mass is present. Up to ten percent of cancers are not identified on mammography. A negative report may reinforce clinical impression. Adenosis and dense breasts may obscure an underlying neoplasm. False positive reports average 6 to 10%. Patient will receive a letter notifying them of these results.
== END 2024-08-16 03:20 ==
PROVIDERS: PCP Nurse Practitioner Family; Visit Provider Naturopath
DX: Z12.31 Encounter for screening mammogram for malignant neoplasm of breast (principal); R92.323 Mammographic fibroglandular density, bilateral breasts
CPT/HCPCS: 77063; 77067